=== PATIENT | female | born 1975 | race Caucasian/White ===

== ENCOUNTER 2020-06-14 01:15 | Emergency (ER) | payer OTHER ==
[2020-06-14 02:44] LABS: BILIRUBIN 1+ mg/dL (NEGATIVE); BLOOD 3+ Ery/uL (NEGATIVE); CLARITY HAZY (CLEAR); COLOR YELLOW (YELLOW); GLUCOSE (U) NORMAL (NORMAL); LEUKOCYTES NEGATIVE Leu/uL (NEGATIVE); NITRITE NEGATIVE (NEGATIVE); PROTEIN 2+ mg/dL (NEGATIVE); SPECIFIC GRAVITY >=1.030 (1.001-1.030); UROBILINOGEN 0.2 mg/dL (0.2-1.0); pH 5.5 (5.0-9.0)
[2020-06-14 02:48] LABS: BACTERIA TRACE; CALCIUM OXALATE CRYSTALS MODERATE; URINARY WBC RARE
[2020-06-14 02:49] LABS: ALBUMIN 3.7 g/dL (3.4-5.0); BILIRUBIN - TOTAL 0.2 mg/dL (0.2-1.0); BUN/CREAT RATIO (CALC) 32.4 RATIO; CREATININE 0.71 mg/dL (0.51-0.95); GLOBULIN (CALCULATION) 2.9 g/dL; POTASSIUM 3.8 mmol/L (3.5-5.1); TOTAL PROTEIN 6.6 g/dL (6.4-8.2)
[2020-06-14 02:50] LABS: BASOPHIL 0.9 % (0-2); HCT 36.5 % (37.0-47.0); HGB 12.4 g/dl (12.5-16.0); LYMPHOCYTE 16.9 % (15-48); MCH 29.6 pg (25.0-31.0); MCV 87.1 fL (78.0-100.0); MONOCYTE 7.8 % (0-12); NEUTROPHIL 72.2 % (41-80); NRBC 0; PLT 275 K/uL (150-400); RBC 4.19 M/uL (4.20-5.40); RDW 12.9 % (11.5-14.0); WBC 10.2 K/uL (4.0-10.5)
[2020-06-14 02:52] LABS: LACTIC ACID 0.8 mmol/L (0.4-1.9)
[2020-06-14] MEDS ORDERED: BENTYL10 MG PO (05:16)
[2020-06-14] MEDS ORDERED: NORCO 5-325 TA1 EACH PO (05:16)
[2020-06-14] MEDS ORDERED: COLACE100 MG PO (05:16)
[2020-06-14] MEDS ORDERED: PHENERGAN12.5 M1 PO (05:16)
== END 2020-06-14 05:28 | disposition home or self-care (01) ==
LOC: FER 01:15
PROVIDERS: Emergency Medicine Emergency Medical Services
DX: R10.84 Generalized abdominal pain (principal); R11.2 Nausea with vomiting, unspecified; N83.202 Unspecified ovarian cyst, left side; Z88.0 Allergy status to penicillin
CPT/HCPCS: 36415; 80053; 81001; 83605; 83690; 84145; 85025; J1885; J2270; J2405; J7030; Q9967